=== PATIENT | male | born 1990 | race Caucasian/White ===

== ENCOUNTER 2017-04-19 23:44 | Emergency (ER) | payer BC ==
[2017-04-19 23:57] VITALS: BP 114/66
--- NOTE | 2017-04-20 01:04 | EDM.PDOC ---
ED HPI GENERAL MEDICAL PROBLEM - General Chief Complaint: Laceration Stated Complaint: CUT POINTER FINGER LEFT HAND Time Seen by Provider: 04/20/17 00:32 Source of Information: Reports: Patient, Family (), RN Notes Reviewed History Limitations: Reports: No Limitations - History of Present Illness INITIAL COMMENTS - FREE TEXT/NARRATIVE: The patient states that he was deboning a deer around 23:30 when he accidentally cut the dorsal distal aspect of his left second finger. He states that the finger bled profusely, although has since stopped. He is otherwise uninjured. He states that his last tetanus vaccination was about 2 years ago. The patient does not have a PCP. - Related Data Allergies Allergy/AdvReac Type Severity Reaction Status Date / Time Sulfa (Sulfonamide Allergy Rash Verified 04/19/17 23:52 Antibiotics) Home Meds: Home Meds . [No Known Home Meds] 04/19/17 [History] Past Medical History - Past Surgical History HEENT Surgical History: Reports: Eye Surgery (left strabismus), Myringotomy w Tube(s) (bilateral) Social & Family History - Tobacco Use Smoking Status *Q: Current Every Day Smoker Years of Tobacco use: 10 Packs/Tins Daily: 1 - Alcohol Use Alcohol Use History: Yes Alcohol Use Frequency: Socially - Recreational Drug Use Recreational Drug Use: No - Living Situation & Occupation Living situation: Reports: , with Spouse, with Family (1 child) Occupation: Employed ([employer]) ED ROS GENERAL - Review of Systems Review Of Systems: See Below Constitutional: Reports: No Symptoms HEENT: Reports: No Symptoms Respiratory: Reports: No Symptoms Cardiovascular: Reports: No Symptoms Endocrine: Reports: No Symptoms GI/Abdominal: Reports: No Symptoms : Reports: No Symptoms Musculoskeletal: Reports: No Symptoms Skin: Reports: No Symptoms Neurological: Reports: No Symptoms Psychiatric: Reports: No Symptoms Hematologic/Lymphatic: Reports: No Symptoms Immunologic: Reports: No Symptoms ED EXAM, SKIN/RASH Exam: See Below Exam Limited By: No Limitations General Appearance: Alert, WD/WN, No Apparent Distress Extremities: Other (There is an approximately 1.5 cm curvilinear laceration to the dorso-ulnar aspect of the left second finger, just prior to the nailbed, distal to the DIP joint. The wound edges approximate naturally. The wound is not currently bleeding. No obvious contamination. No tendinous injury. Normal sensation to the finger.) ED SKIN PROCEDURES - Laceration/Wound Repair Left Finger Lac/Wound length In cm: 1.5 Appearance: Subcutaneous, Irregular (curvilinear), Clean Distal NVT: Neuro & Vascular Intact, No Tendon Injury Skin Prep: Saline Exploration/Debridement/Repair: Wound Explored, In a Bloodless Field, Explored to Base, No Foreign Material Found, Wound Margins Revised Closed with: Dermabond Sterile Dressing Applied: None Tetanus Status Addressed: Yes Complications: No Course - Vital Signs Last Recorded V/S: Last Vital Signs Temp 36.4 C 04/19/17 23:52 Pulse 67 04/19/17 23:52 Resp 16 04/19/17 23:52 BP 114/66 04/19/17 23:52 Pulse Ox 99 04/19/17 23:52 - Re-Assessments/Exams Free Text/Narrative Re-Assessment/Exam: 04/20/17 01:02 The laceration on the patient's left second finger was able to be closed with Dermabond. I am recommending no dressing tonight (too sticky), however, in the morning, he should keep the wound clean with ordinary bathing, then apply a clean Band-Aid, daily. Departure - Departure Time of Disposition: 01:02 Disposition: Home, Self-Care 01 Condition: Good Clinical Impression: Laceration of left index finger - Discharge Information Instructions: Laceration Care, Adult, [id number], Tissue Adhesive Wound Care , [id number] Referrals: PCP,None [Primary Care Provider] - Forms: ED Department Discharge Additional Instructions: You were seen in the emergency room after cutting your left index finger. Your wound was able to be closed with Dermabond. Leave the wound alone tonight, however, in the morning, beta as you ordinarily would, then apply a Band-Aid over the wound. Do this daily. Do not take after glue. Allow it to flake off on its own, which typically takes about 5 days. Take Tylenol or ibuprofen as needed for discomfort. The wound will not likely become infected, however, if there are any concerns, such as swelling, drainage, or significant pain, please return to the ER for reevaluation.
== END 2017-04-20 01:12 | disposition home or self-care (01) ==
LOC: JD.ED 23:44
DX: S61.211A Laceration without foreign body of left index finger without damage to nail, initial encounter (principal); F17.210 Nicotine dependence, cigarettes, uncomplicated; Z88.2 Allergy status to sulfonamides; W26.0XXA Contact with knife, initial encounter
CPT/HCPCS: 12001; 99282-25; 99283-25